=== PATIENT | male | born 1990 | race Hispanic/Latino ===

== ENCOUNTER 2018-06-09 08:36 | Emergency (ER) | payer OTHER ==
[2018-06-09 08:41] VITALS: BMI 21.2
[2018-06-09 08:44] VITALS: TEMP 98.7
--- NOTE | 2018-06-09 08:56 | ED PDOC ---
Arrival/HPI - General Chief Complaint: Palpitations Historian: Patient - History of Present Illness Narrative History of Present Illness (Text): 06/09/18 08:56 A 28 y/o M w/ no pmhx presents to the emergency department complaining of dizziness and palpitations since earlier this morning. Patient reports he was showering this morning when he suddenly felt slight shortness of breath, palpitations, and dizziness, with associated slight arm and leg weakness. Patient notes he felt like he was about to faint and has never experienced these symptoms before. Patient states he has no history of a heart murmur and has no significant family medical history of cardiac problems. Patient denies any chest pain, abdominal pain, no recent colds, no recent travels, headache, or any other complaints. No PMD Time/Duration: 4-6 hours (earlier this morning) Symptom Onset: Sudden Symptom Course: Unchanged Activities at Onset: Light Context: Home Past Medical History - Provider Review Nursing Documentation Reviewed: Yes - Psychiatric Hx Substance Use: No Family/Social History - Physician Review Nursing Documentation Reviewed: Yes Family/Social History: No Known Family HX Smoking Status: Never Smoked Hx Alcohol Use: No Hx Substance Use: No Allergies/Home Meds Allergies/Adverse Reactions: Allergies No Known Allergies Allergy (Verified 06/09/18 08:40) Home Medications: Home Meds Medication Instructions Recorded Confirmed No Known Home Med 06/09/18 06/09/18 Review of Systems - Review of Systems Respiratory: SOB Cardiovascular: Palpitations. absent: Chest Pain Gastrointestinal: absent: Abdominal Pain Neurological: Dizziness, Other (+slight arm and leg weakness). absent: Headache Physical Exam - Physical Exam Narrative Physical Exam (Text): 06/09/18 08:58 Vital Signs Reviewed: Yes Vital Signs Temp Pulse Resp BP Pulse Ox 06/09/18 08:41 98.7 F 87 19 127/70 99 Temperature: Afebrile Blood Pressure: Normal Pulse: Regular Respiratory Rate: Normal - Systems Exam Head: Present: Atraumatic, Normocephalic Pupils: Present: PERRL Extroacular Muscles: Present: EOMI Conjunctiva: Present: Normal Respiratory/Chest: Present: Clear to Auscultation, Good Air Exchange. No: Respiratory Distress, Accessory Muscle Use Cardiovascular: Present: Regular Rate and Rhythm, Normal S1, S2. No: Murmurs Abdomen: No: Tenderness, Distention, Peritoneal Signs Back: Present: Normal Inspection Upper Extremity: Present: Normal Inspection. No: Cyanosis, Edema Lower Extremity: Present: Normal Inspection. No: Edema Neurological: Present: GCS=15, CN II-XII Intact, Speech Normal Skin: Present: Warm, Dry, Normal Color. No: Rashes Psychiatric: Present: Alert, Oriented x 3, Normal Insight, Normal Concentration Medical Decision Making ED Course and Treatment: 06/09/18 08:58 Impression: 28 year old male presenting to the emergency department complaining of dizziness and palpitations. Differential Diagnosis included but are not limited to: -- ACS -- endocarditis -- pericarditis -- myocarditis -- pneumonia -- arrhythmia (WPW) -- SVT -- AVNRT Plan: -- EKG -- Labs -- CBC -- Chest X-ray -- Urinalysis -- Reassess and disposition Progress Notes: - Lab Interpretations Lab Results: 06/09/18 09:00 06/09/18 09:00 Lab Results 06/09/18 09:53: Urine Opiates Screen Negative, Urine Methadone Screen Negative, Ur Barbiturates Screen Negative, Ur Phencyclidine Scrn Negative, Ur Amphetamines Screen Negative, U Benzodiazepines Scrn Negative, U Oth Cocaine Metabols Negative, U Cannabinoids Screen Negative 06/09/18 09:46: Urine Color Yellow, Urine Appearance Clear, Urine pH 7.5, Ur Specific [place] 1.015, Urine Protein Negative, Urine Glucose (UA) Negative, Urine Ketones Negative, Urine Blood Negative, Urine Nitrate Negative, Urine Bilirubin Negative, Urine Urobilinogen 0.2, Ur Leukocyte Esterase Negative 06/09/18 09:00: D-Dimer, Quantitative < 200 06/09/18 09:00: Sodium 142, Potassium 3.6, Chloride 105, Carbon Dioxide 28, Anion Gap 13, BUN 17, Creatinine 0.8, Est GFR ( Amer) > 60, Est GFR (Non- Af Amer) > 60, Random Glucose 97, Calcium 10.2, Magnesium 2.0, Total Bilirubin 1.1, AST 22, ALT 26, Alkaline Phosphatase 83, Total Creatine Kinase 63, Troponin I < 0.01, NT-Pro-B Natriuret Pep 56.3, Total Protein 7.4, Albumin 4.5, Globulin 2.9, Albumin/Globulin Ratio 1.5 06/09/18 09:00: WBC 5.6, RBC 4.90, Hgb 14.7, Hct 42.2, MCV 86.1, MCH 30.0, MCHC 34.8, RDW 12.3, Plt Count 178, MPV 11.4 H, Gran % 46.9 L, Lymph % (Auto) 43.8 H, Wilson % (Auto) 7.0 H, Eos % (Auto) 1.8, Baso % (Auto) 0.5, Gran # 2.62, Lymph # (Auto) 2.5, Wilson # (Auto) 0.4, Eos # (Auto) 0.1, Baso # (Auto) 0.03 I have reviewed the lab results: Yes - RAD Interpretation Narrative RAD Interpretations (Text): 06/09/18 10:09 Procedure: Chest X-ray Dictator: Denzel Wang Impression: No active disease. Accounting Administrative Assistant: Radiologist - EKG Interpretation EKG Interpretation (Text): 06/09/18 09:09 EKG: Ordered, reviewed, and independently interpreted the EKG. Rate : 88 BPM Rhythm : NSR Interpretation : No ST-segment elevations, no peaked T-wave inversions. Interpreted by ED Physician: Yes - Scribe Statement The provider has reviewed the documentation as recorded by the Deborah Gimenez All medical record entries made by the Scribe were at my direction and personally dictated by me. I have reviewed the chart and agree that the record accurately reflects my personal performance of the history, physical exam, medical decision making, and the department course for this patient. I have also personally directed, reviewed, and agree with the discharge instructions and disposition. Disposition/Present on Arrival - Present on Arrival Any Indicators Present on Arrival: No History of DVT/PE: No History of Uncontrolled Diabetes: No Urinary Catheter: No History of Decub. Ulcer: No History Surgical Site Infection Following: None - Disposition Have Diagnosis and Disposition been Completed?: Yes Diagnosis: Heart palpitations Disposition: HOME/ ROUTINE Disposition Time: 10:28 Patient Plan: Discharge Patient Problems: Current Active Problems Problem Status Onset Heart palpitations Acute Condition: STABLE Discharge Instructions (ExitCare): Palpitations (DC) Print Language: IRISH Additional Instructions: All medical record entries made by the Scribe were at my direction and personally dictated by me. I have reviewed the chart and agree that the record accurately reflects my personal performance of the history, physical exam, medical decision making, and the department course for this patient. I have also personally directed, reviewed, and agree with the discharge instructions and disposition. Please follow up with the records analyst in 2-3 days Please monitor for any warning symptoms such as chest pain, shortness of breath, fever, fainting or back pain and return to Emergency Department for evaluation if you have any of these symptoms Referrals: Frank Riggins MD [Staff Provider] - Follow up with primary Kathy Bravo MD [Medical Doctor] - Follow up with [place] [facility] [place] - Follow up with primary Forms: [facility] (Kinyarwanda), WORK NOTE
[2018-06-09 09:13] VITALS: O2SAT 100
[2018-06-09 09:14] LABS: BASO # 0.03 K/mm3 (0.0-2.0); BASO % 0.5 % (0.0-3.0); EOS # 0.1 (0.0-0.7); EOS % 1.8 % (1.5-5.0); GRAN # 2.62 (1.4-6.5); GRAN % 46.9 % (50.0-68.0); HEMOGLOBIN 14.7 g/dL (14.0-18.0); LYMPH # 2.5 (1.2-3.4); LYMPH % 43.8 % (22.0-35.0); MEAN CELL VOLUME 86.1 fl (80.0-105.0); MEAN CORPUSCULAR HGB CONC 34.8 g/dl (31.0-37.0); MEAN PLATELET VOLUME 11.4 fl (7.0-11.0); MONO # 0.4 (0.1-0.6); RBC 4.9 10^6/uL (3.5-6.1); RED CELL DISTRIBUTION WIDTH 12.3 % (11.5-14.5); WHITE BLOOD COUNT 5.6 10^3/uL (4.5-11.0)
[2018-06-09 09:25] LABS: ALB/GLOB RATIO 1.5 (1.1-1.8); ALBUMIN 4.5 g/dL (3.0-4.8); ALT/SGPT 26 U/L (7-56); AST/SGOT 22 U/L (17-59); BLOOD UREA NITROGEN 17 mg/dL (7-21); CALCIUM 10.2 mg/dL (8.4-10.5); GFR NON-AFRICAN AMERICAN > 60
[2018-06-09 09:44] LABS: B-TYPE NATRIURETIC PEPTIDE 56.3 pg/mL (0-450); TROPONIN I < 0.01 ng/mL
--- NOTE | 2018-06-09 09:59 | RAD ---
Date of service: 06/09/2018 HISTORY: sob COMPARISON: No prior. FINDINGS: LUNGS: No active pulmonary disease. PLEURA: No significant pleural effusion identified, no pneumothorax apparent. CARDIOVASCULAR: No aortic atherosclerotic calcification present. Normal cardiac size. No pulmonary vascular congestion. OSSEOUS STRUCTURES: No significant abnormalities. VISUALIZED UPPER ABDOMEN: Normal. OTHER FINDINGS: None. IMPRESSION: No active disease.
[2018-06-09 10:02] LABS: PH,URINE 7.5 (4.7-8.0); URINE BILIRUBIN NEGATIVE (NEGATIVE); URINE BLOOD NEGATIVE (NEGATIVE); URINE GLUCOSE (UA) NEGATIVE (NEGATIVE); URINE LEUKOCYTE ESTERASE NEGATIVE Leu/uL (NEGATIVE); URINE PROTEIN NEGATIVE mg/dL (<30 mg/dL); URINE UROBILINOGEN 0.2 E.U./dL (<1 E.U./dL)
[2018-06-09 10:09] LABS: URINE APPEARANCE CLEAR (CLEAR); URINE COLOR YELLOW (YELLOW)
[2018-06-09 10:29] LABS: BARBITURATES, UR NEGATIVE (NEGATIVE); BENZODIAZEPINES, UR NEGATIVE (NEGATIVE); OPIATES, UR NEGATIVE (NEGATIVE); PHENCYCLIDINE, UR NEGATIVE (NEGATIVE)
[2018-06-09 10:57] VITALS: BP 125/77; PULSE 81; RESP 18
--- NOTE | 2018-06-09 20:25 | CARD ---
APPROVED REPORT Date of service: 06/09/2018 EKG Measurement Heart [id number] <Conclusion> Normal sinus rhythm Normal ECG
== END 2018-06-09 10:57 | disposition home or self-care (01) ==
LOC: ED 08:36
DX: R00.2 Palpitations (principal)

== ENCOUNTER 2018-08-06 23:29 | Emergency (ER) | payer OTHER ==
[2018-08-06 23:29] VITALS: BMI 21.2
[2018-08-06 23:57] VITALS: BP 118/76; PULSE 87; RESP 18; TEMP 98.1; O2SAT 98
== END 2018-08-07 01:09 | disposition left against medical advice (07) ==
LOC: ED 23:29
DX: Z02.89 Encounter for other administrative examinations (principal); R10.9 Unspecified abdominal pain

== ENCOUNTER 2018-08-13 19:43 | Emergency (ER) | payer OTHER ==
[2018-08-13 19:44] VITALS: BMI 21.2
--- NOTE | 2018-08-13 20:16 | ED PDOC ---
Arrival/HPI - General Chief Complaint: Weakness/Neurological Deficit Time Seen by Provider: 08/13/18 19:50 Historian: Patient - History of Present Illness Narrative History of Present Illness (Text): 08/13/18 20:13 28 yo no PMH 2-3 week h/o dizziness, yellow stool, "brain fog," which the patient describes as feeling confused, forgetting things, lack of awareness. Patient also reports having recent stomach flu with decreased appetite and diarrhea ~1 wk ago. States that his symptoms including the diarrhea has resolved, now is constipated with yellow stool and nausea. Although he reports no changes in diet, no abdominal pain, no vomiting, no alcohol use, or drug use, he is not a smoker, no h/o hepatitis, no melena/hematochezia, no recent travel. Past Medical History - Infectious Disease Hx of Infectious Diseases: None - Cardiac Hx Cardiac Disorders: No - Pulmonary Hx Respiratory Disorders: No - Neurological Hx Neurological Disorder: No - HEENT Hx HEENT Disorder: No Hx Blind: No - Musculoskeletal/Rheumatological Hx Musculoskeletal Disorders: No - Gastrointestinal Hx Gastrointestinal Disorders: No - Genitourinary/Gynecological Hx Genitourinary Disorders: No - Psychiatric Hx Psychophysiologic Disorder: No Hx Substance Use: No - Anesthesia Hx Anesthesia: No Family/Social History Family/Social History: No Known Family HX Smoking Status: Never Smoked Hx Alcohol Use: No Hx Substance Use: No Allergies/Home Meds Allergies/Adverse Reactions: Allergies No Known Allergies Allergy (Verified 08/13/18 19:54) Home Medications: Home Meds Medication Instructions Recorded Confirmed No Known Home Med 06/09/18 08/13/18 Review of Systems - Review of Systems Constitutional: absent: Fatigue, Fevers Respiratory: absent: SOB, Cough Cardiovascular: Palpitations. absent: Chest Pain Gastrointestinal: Constipation, Diarrhea, Nausea. absent: Abdominal Pain, Vomiting Musculoskeletal: absent: Arthralgias, Back Pain, Neck Pain Skin: absent: Rash, Skin Lesions Neurological: Dizziness. absent: Headache Physical Exam Temperature: Afebrile Blood Pressure: Normal Pulse: Regular Respiratory Rate: Normal Appearance: Positive for: Well-Appearing, Non-Toxic, Comfortable Pain Distress: None Mental Status: Positive for: Alert and Oriented X 3 - Systems Exam Head: Present: Atraumatic, Normocephalic Pupils: Present: PERRL Extroacular Muscles: Present: EOMI Conjunctiva: Present: Normal Mouth: Present: Moist Mucous Membranes Neck: Present: Normal Range of Motion Respiratory/Chest: Present: Clear to Auscultation, Good Air Exchange. No: Respiratory Distress, Accessory Muscle Use Cardiovascular: Present: Regular Rate and Rhythm, Normal S1, S2. No: Murmurs Abdomen: No: Tenderness, Distention, Peritoneal Signs Back: Present: Normal Inspection Upper Extremity: Present: Normal Inspection. No: Cyanosis, Edema Lower Extremity: Present: Normal Inspection. No: Edema Neurological: Present: GCS=15, CN II-XII Intact, Speech Normal, Motor Func Grossly Intact, Normal Sensory Function, Gait Normal Skin: Present: Warm, Dry, Normal Color. No: Rashes Psychiatric: Present: Alert, Oriented x 3, Normal Insight, Normal Concentration Medical Decision Making ED Course and Treatment: 08/13/18 20:17 Previous medical records reviewed, patient seen on 06/09/18 for dizziness and palpitations, had a full cardiac work up in the ER which included negative trop, neg d-dimer, normal CXR and EKG. Plan : - IV - Labs - EKG - CT head Patient states that since his last visit here, he did follow up with a leather goods ii assembler Dr. Byrne, had EKG, carotid doppler and echo done which were all normal. Patient refused CT head, benefits of obtaining head CT was discussed with the patient, asked to reconsider, however he still refused. Labs reviewed and wnl, including normal LFTs. EKG : NSR at 62 bpm, normal axis, no acute ST changes. On reevaluation, patient remains awake alert and oriented 3 in no acute distress. Repeat neuro exam shows no focal findings. Patient still is refusing head CT. Lab and EKG results d/w the patient. Based on history, exam and diagnostic results plan will be for outpatient follow up. Advised to follow up with primary care physician or referral physician (PMD, neuro and GI referral given to the patient) in 1-2 days without fail. Return to the emergency room at any time for any new or worsening symptoms. Patient states he fully agrees with and understands discharge instructions. States that he agrees with the plan and disposition. Verbalized and repeated discharge instructions and plan. I have given the patient opportunity to ask any additional questions. - PA / CHEMISTRY QUALITY CONTROL TECHNICIAN / Resident Statement MD/DO has reviewed & agrees with the documentation as recorded. Disposition/Present on Arrival - Present on Arrival Any Indicators Present on Arrival: No History of DVT/PE: No History of Uncontrolled Diabetes: No Urinary Catheter: No History of Decub. Ulcer: No History Surgical Site Infection Following: None - Disposition Have Diagnosis and Disposition been Completed?: Yes Diagnosis: Dizziness Disposition: HOME/ ROUTINE Disposition Time: 21:15 Patient Plan: Discharge Condition: STABLE Additional Instructions: Thank you for letting us take care of you today. You were treated for dizziness. The emergency medical care you received today was directed at your acute symptoms.Return to the Emergency Department if your symptoms worsen, do not improve, or if you have any other problems. Please contact your doctor in 2 days for re-evaluation and follow up / or call one of the physicians/clinics you have been referred to that are listed on the Patient Visit Information form that is included in your discharge packet. Bring any paperwork you were given at discharge with you along with any medications you are taking to your follow up visit. Our treatment cannot replace ongoing medical care by a primary care provider (PCP) outside of the emergency department. Thank you for allowing the [facility] team to be part of your care today. Referrals: FAMILY PROVIDER,NO [Primary Care Provider] - Follow up with primary Leelee Mcpherson MD [Staff Provider] - Follow up with primary Jose A Leggett MD [Staff Provider] - Follow up with primary Edd Hoang MD [Staff Provider] - Follow up with primary Forms: [employer] (Danish), WORK NOTE
[2018-08-13 20:49] LABS: BASO # 0.03 K/mm3 (0.0-2.0); BASO % 0.6 % (0.0-3.0); EOS # 0.1 (0.0-0.7); EOS % 1.3 % (1.5-5.0); HEMOGLOBIN 15.1 g/dL (14.0-18.0); LYMPH # 1.9 (1.2-3.4); LYMPH % 35.4 % (22.0-35.0); MEAN CELL VOLUME 87.2 fl (80.0-105.0); MEAN CORPUSCULAR HEMOGLOBIN 30.1 pg (25.0-35.0); MEAN CORPUSCULAR HGB CONC 34.6 g/dl (31.0-37.0); MEAN PLATELET VOLUME 11.9 fl (7.0-11.0); MONO # 0.5 (0.1-0.6); MONO % 10.1 % (1.0-6.0); RBC 5.01 10^6/uL (3.5-6.1); RED CELL DISTRIBUTION WIDTH 12.2 % (11.5-14.5); WHITE BLOOD COUNT 5.4 10^3/uL (4.5-11.0)
[2018-08-13 20:59] LABS: ALB/GLOB RATIO 1.3 (1.1-1.8); ALBUMIN 4.5 g/dL (3.0-4.8); ALT/SGPT 10 U/L (7-56); AST/SGOT 28 U/L (17-59); BLOOD UREA NITROGEN 11 mg/dL (7-21); CALCIUM 9.7 mg/dL (8.4-10.5); GFR NON-AFRICAN AMERICAN > 60
[2018-08-13 23:52] VITALS: BP 136/78; PULSE 90; RESP 17; O2SAT 100
--- NOTE | 2018-08-14 10:25 | CARD ---
APPROVED REPORT Date of service: 08/13/2018 EKG Measurement Heart [id number] <Conclusion> Normal sinus rhythm with sinus arrhythmia Normal ECG
== END 2018-08-13 21:47 | disposition home or self-care (01) ==
LOC: ED 19:43
DX: R42 Dizziness and giddiness (principal)

== ENCOUNTER 2018-08-26 01:26 | Emergency (ER) | payer OTHER ==
[2018-08-26 01:27] VITALS: BMI 21.2
[2018-08-26 01:51] VITALS: BP 114/77; PULSE 71; RESP 18; TEMP 98.3; O2SAT 98
[2018-08-26] MEDS ORDERED: Sodium Chloride 0.9% 1,000 ML IV STA (02:16)
--- NOTE | 2018-08-26 02:44 | ED PDOC ---
Arrival/HPI - General Chief Complaint: Abdominal Pain Time Seen by Provider: 08/26/18 02:08 Historian: Patient - History of Present Illness Narrative History of Present Illness (Text): 08/26/18 02:33 28 year old male with no significant past medical history, presents to the emergency department complaining of episodes of diarrhea associated with some abdominal cramping. Patient also reports occasional dizziness. Patient has been having similar symptoms a couple weeks ago which he was evaluated and discharged. Patient at the time refused CT scan of the head. Patient denies any abdominal pain currently. Patient denies any fever, chills, chest pain, shortness of breath, nausea, vomiting, urinary symptoms, back pain, neck pain, headache, or any other complaints. Symptom Onset: Gradual Symptom Course: Unchanged Activities at Onset: Light Context: Home Past Medical History - Provider Review Nursing Documentation Reviewed: Yes - Infectious Disease Hx of Infectious Diseases: None - Cardiac Hx Cardiac Disorders: No - Pulmonary Hx Respiratory Disorders: No - Neurological Hx Neurological Disorder: No - HEENT Hx HEENT Disorder: No Hx Blind: No - Musculoskeletal/Rheumatological Hx Musculoskeletal Disorders: No - Gastrointestinal Hx Gastrointestinal Disorders: No - Genitourinary/Gynecological Hx Genitourinary Disorders: No - Psychiatric Hx Psychophysiologic Disorder: No Hx Substance Use: No - Anesthesia Hx Anesthesia: No Family/Social History - Physician Review Nursing Documentation Reviewed: Yes Family/Social History: No Known Family HX Smoking Status: Never Smoked Hx Alcohol Use: No Hx Substance Use: No Allergies/Home Meds Allergies/Adverse Reactions: Allergies No Known Allergies Allergy (Verified 08/13/18 19:54) Home Medications: Home Meds Medication Instructions Recorded Confirmed No Known Home Med 06/09/18 08/13/18 Review of Systems - Physician Review All systems were reviewed & negative as marked: Yes - Review of Systems Constitutional: absent: Fevers, Other (chills) Respiratory: absent: SOB Cardiovascular: absent: Chest Pain Gastrointestinal: Abdominal Pain, Diarrhea. absent: Nausea, Vomiting Genitourinary Male: absent: Dysuria, Frequency, Hematuria Musculoskeletal: absent: Back Pain, Neck Pain Neurological: Dizziness. absent: Headache Physical Exam Vital Signs Reviewed: Yes Vital Signs Temp Pulse Resp BP Pulse Ox 08/26/18 01:50 98.3 F 71 18 114/77 98 Temperature: Afebrile Blood Pressure: Normal Pulse: Regular Respiratory Rate: Normal Appearance: Positive for: Well-Appearing, Non-Toxic, Comfortable Pain Distress: None Mental Status: Positive for: Alert and Oriented X 3 - Systems Exam Head: Present: Atraumatic, Normocephalic Pupils: Present: PERRL Extroacular Muscles: Present: EOMI Conjunctiva: Present: Normal Mouth: Present: Moist Mucous Membranes Neck: Present: Normal Range of Motion Respiratory/Chest: Present: Clear to Auscultation, Good Air Exchange. No: Respiratory Distress, Accessory Muscle Use Cardiovascular: Present: Regular Rate and Rhythm, Normal S1, S2. No: Murmurs Abdomen: No: Tenderness, Distention, Peritoneal Signs Back: Present: Normal Inspection Upper Extremity: Present: Normal Inspection. No: Cyanosis, Edema Lower Extremity: Present: Normal Inspection. No: Edema Neurological: Present: GCS=15, Speech Normal Skin: Present: Warm, Dry, Normal Color. No: Rashes Psychiatric: Present: Alert, Oriented x 3, Normal Insight, Normal Concentration Medical Decision Making ED Course and Treatment: 08/26/18 02:41 Impression: 28 year old male presents complaining of episodes of diarrhea associated with abdominal cramping and occasional dizziness. Plan: -- head CT w/o contrast -- Labs -- IV Fluids -- Reassess and disposition Prior Visits: Notes and results from previous visits were reviewed. Progress Notes: 08/26/18 04:[address] head scan and understands risk of intractable dizziness. Patient wants to sign out against medical advice and will follow up with his PMD. Leaving Against Medical Advice (AMA): The patient is choosing to leave against medical advice. I have personally explained to the patient that choosing to do so may result in permanent bodily harm, disability, or . I have discussed at great length that without further evaluation and monitoring there may be unforeseen circumstances and/or deterioration causing permanent bodily harm or as a result of their choice. The patient is alert, oriented, and shows the mental capacity to make clear decisions regarding the patients health care at this time. The patient continues to wish to leave against medical advice. In light of the patients decision to leave against medical advice, follow-up has been arranged and the patient is aware of the importance to following up as instructed. The patient has been advised that they should return to the emergency room immediately if they change their mind at any time, or if their condition begins to change or worsen in any way. - Lab Interpretations I have reviewed the lab results: Yes - RAD Interpretation Radiology Orders: 08/26/18 02:21 HEAD W/O CONTRAST [CT] Stat Curriculum Specialist: Radiologist - Medication Orders Current Medication Orders: Sodium Chloride (Sodium Chloride 0.9%) 1,000 mls @ 999 mls/hr IV .Q1H1M STA Stop: 08/26/18 03:16 Last Admin: 08/26/18 02:35 Dose: 999 mls/hr eMAR Start Stop Document 08/26/18 02:35 EB (Rec: 08/26/18 02:36 EB [id number]) Intravenous Solution Start Date 08/26/18 Start Time 02:36 - Scribe Statement The provider has reviewed the documentation as recorded by the Deborah Ceron Provider Scribe Attestation: All medical record entries made by the Scribe were at my direction and personally dictated by me. I have reviewed the chart and agree that the record accurately reflects my personal performance of the history, physical exam, m edical decision making, and the department course for this patient. I have also personally directed, reviewed, and agree with the discharge instructions and disposition. Disposition/Present on Arrival - Present on Arrival Any Indicators Present on Arrival: No History of DVT/PE: No History of Uncontrolled Diabetes: No Urinary Catheter: No History of Decub. Ulcer: No History Surgical Site Infection Following: None - Disposition Have Diagnosis and Disposition been Completed?: Yes Diagnosis: Gastroenteritis, Dizziness Disposition: AGAINST MEDICAL ADVICE Disposition Time: 04:57 Patient Plan: Discharge Patient Problems: Current Active Problems Problem Status Onset Dizziness Acute Gastroenteritis Acute Condition: GOOD Forms: [employer] (Honduran)
[2018-08-26 02:52] LABS: ALB/GLOB RATIO 1.3 (1.1-1.8); ALBUMIN 4.4 g/dL (3.0-4.8); ALT/SGPT 10 U/L (7-56); AST/SGOT 23 U/L (17-59); BLOOD UREA NITROGEN 15 mg/dL (7-21); CALCIUM 9.8 mg/dL (8.4-10.5); GFR NON-AFRICAN AMERICAN > 60; LIPASE 148 U/L (23-300)
[2018-08-26 02:53] LABS: HEMOGLOBIN 14.5 g/dL (14.0-18.0); MEAN CELL VOLUME 89.6 fl (80.0-105.0); MEAN CORPUSCULAR HEMOGLOBIN 30.1 pg (25.0-35.0); MEAN CORPUSCULAR HGB CONC 33.6 g/dl (31.0-37.0); MEAN PLATELET VOLUME 12.4 fl (7.0-11.0); RBC 4.82 10^6/uL (3.5-6.1); RED CELL DISTRIBUTION WIDTH 12.4 % (11.5-14.5)
== END 2018-08-26 03:35 | disposition left against medical advice (07) ==
LOC: ED 01:26
DX: K52.9 Noninfective gastroenteritis and colitis, unspecified (principal); R42 Dizziness and giddiness
CPT/HCPCS: 80053; 83690; 85027; 99282; J7030

== ENCOUNTER 2018-08-26 16:19 | Emergency (ER) | payer OTHER ==
[2018-08-26 16:20] VITALS: BMI 21.2
[2018-08-26 16:31] VITALS: RESP 18; TEMP 98.1
--- NOTE | 2018-08-26 16:41 | ED PDOC ---
Arrival/HPI - General Historian: Patient - History of Present Illness Narrative History of Present Illness (Text): 08/26/18 18:54 28 y/o male with no significant PMH presents to the Emergency department c/o intermittent dizziness, described as lightheadedness x 1 month. Pt was seen in ED early this morning for similar complaints with a negative workup, including bloodwork. A head CT was ordered, but patient left AMA before it could be completed. Pt presents today requesting head CT. He has been having intermittent episodes of diarrhea over the last few weeks with associated lightheadedness. Pt was on the way to a GI appointment this afternoon when he suddenly became anxio us and decided to come to ED for imaging instead. Denies fever, chills, cough, sinus congestion, urinary symptoms, abdominal pain, nausea, vomiting, chest pain, SOB, headache, vision changes, tinnitus, or any other associated symptoms. Past Medical History - Provider Review Nursing Documentation Reviewed: Yes - Infectious Disease Hx of Infectious Diseases: None - Cardiac Hx Cardiac Disorders: No - Pulmonary Hx Respiratory Disorders: No - Neurological Hx Neurological Disorder: No - HEENT Hx HEENT Disorder: No Hx Blind: No - Musculoskeletal/Rheumatological Hx Musculoskeletal Disorders: No - Gastrointestinal Hx Gastrointestinal Disorders: No - Genitourinary/Gynecological Hx Genitourinary Disorders: No - Psychiatric Hx Psychophysiologic Disorder: No Hx Substance Use: No - Anesthesia Hx Anesthesia: No Family/Social History - Physician Review Nursing Documentation Reviewed: Yes Family/Social History: No Known Family HX Smoking Status: Never Smoked Hx Alcohol Use: No Hx Substance Use: No Allergies/Home Meds Allergies/Adverse Reactions: Allergies No Known Allergies Allergy (Verified 08/26/18 16:31) Home Medications: Home Meds Medication Instructions Recorded Confirmed No Known Home Med 06/09/18 08/26/18 Review of Systems - Physician Review All systems were reviewed & negative as marked: Yes - Review of Systems Constitutional: Normal. absent: Fatigue, Fevers Eyes: Normal. absent: Vision Changes ENT: Normal. absent: Sore Throat, Sinus Congestion Respiratory: Normal. absent: SOB, Cough Cardiovascular: Normal. absent: Chest Pain, Palpitations Gastrointestinal: Normal. absent: Abdominal Pain, Stool Changes, Nausea, Vomiting, Appetite Changes Genitourinary Male: Normal. absent: Dysuria, Frequency Musculoskeletal: Normal. absent: Arthralgias, Back Pain, Neck Pain Skin: Normal Neurological: Dizziness. absent: Headache, Focal Weakness, Gait Changes, Facial Droop, Disequilibrium Endocrine: Normal Hemo/Lymphatic: Normal Psychiatric: Normal Physical Exam Vital Signs Reviewed: Yes Vital Signs Temp Pulse Resp BP Pulse Ox 08/26/18 16:29 98.1 F 103 H 18 118/80 98 Temperature: Afebrile Blood Pressure: Normal Pulse: Tachycardic Respiratory Rate: Normal Appearance: Positive for: Well-Appearing, Non-Toxic, Comfortable Pain Distress: None Mental Status: Positive for: Alert and Oriented X 3 - Systems Exam Head: Present: Atraumatic, Normocephalic Pupils: Present: PERRL Extroacular Muscles: Present: EOMI Conjunctiva: Present: Normal Ears: Present: Normal, NORMAL TM, Normal Canal Mouth: Present: Moist Mucous Membranes Pharnyx: Present: Normal. No: ERYTHEMA, EXUDATE Neck: Present: Normal Range of Motion. No: Meningeal Signs Respiratory/Chest: Present: Clear to Auscultation, Good Air Exchange. No: Respiratory Distress, Accessory Muscle Use Cardiovascular: Present: Regular Rate and Rhythm, Normal S1, S2 Abdomen: Present: Normal Bowel Sounds. No: Tenderness, Distention, Peritoneal Signs Back: Present: Normal Inspection Upper Extremity: Present: Normal Inspection, Normal ROM, NORMAL PULSES, Neurovascularly Intact, Capillary Refill < 2s. No: Cyanosis, Edema, Temperature Abnormalties Lower Extremity: Present: Normal Inspection, NORMAL PULSES, Normal ROM, Neurovascularly Intact, Capillary Refill < 2 s. No: Edema, Temperature Abnormalties Neurological: Present: GCS=15, CN II-XII Intact, Speech Normal, Motor Func Grossly Intact, Normal Sensory Function, Gait Normal Skin: Present: Warm, Dry, Normal Color. No: Rashes Psychiatric: Present: Alert, Oriented x 3, Anxious Medical Decision Making ED Course and Treatment: 08/26/18 16:40 Initial Plan: * Head CT without contrast * Fingerstick * UA * Orthostatic Vital Signs * PO Hydration * EKG Patient refusing EKG at this time. Advised that dizziness can be caused by cardiac disorders. Pt continues to refuse. Bloodwork not indicated at this time, as bloodwork was drawn at patient's visit early this morning. Labs reviewed, unremarkable. UA unremarkable Fingerstick wnl Orthostatics negative Head CT negative for acute pathology. Pt given copy of report. Diagnostic testing results and plan of care discussed with patient. Strict instructions given regarding prescription use, importance of followup, and signs/symptoms to return to ER including syncope, chest pain, SOB, or any other new/worsening symptoms. Pt verbalized understanding of discussion. Patient is A&Ox3, ambulating with steady gait, with vital signs stable for discharge. - Lab Interpretations Lab Results: Lab Results 08/26/18 17:00: Urine Color Yellow, Urine Appearance Clear, Urine pH 6.0, Ur Specific [place] 1.025, Urine Protein Negative, Urine Glucose (UA) Negative, Urine Ketones Negative, Urine Blood Negative, Urine Nitrate Negative, Urine Bilirubin Negative, Urine Urobilinogen 0.2, Ur Leukocyte Esterase Negative 08/26/18 16:55: POC Glucose (mg/dL) 87 - RAD Interpretation Radiology Orders: 08/26/18 16:40 HEAD W/O CONTRAST [CT] Stat Disposition/Present on Arrival - Present on Arrival Any Indicators Present on Arrival: No History of DVT/PE: No History of Uncontrolled Diabetes: No Urinary Catheter: No History of Decub. Ulcer: No History Surgical Site Infection Following: None - Disposition Have Diagnosis and Disposition been Completed?: Yes Diagnosis: Anxiety, Dizziness Disposition: HOME/ ROUTINE Disposition Time: 19:00 Condition: GOOD Discharge Instructions (ExitCare): Anxiety, Adult (DC) Additional Instructions: Increase fluids Rest, no strenuous activity Followup with GI as scheduled Followup with neurology within 2 days Followup with ENT within 2 days Return to ER with any new/worsening symptoms Referrals: Chris Morataya DO [Staff Provider] - Follow up with primary Edd Hoang MD [Staff Provider] - Follow up with primary Forms: [employer] ([place]), WORK NOTE
[2018-08-26 17:56] LABS: URINE BILIRUBIN NEGATIVE (NEGATIVE); URINE BLOOD NEGATIVE (NEGATIVE); URINE GLUCOSE (UA) NEGATIVE (NEGATIVE); URINE LEUKOCYTE ESTERASE NEGATIVE Leu/uL (NEGATIVE); URINE PROTEIN NEGATIVE mg/dL (<30 mg/dL); URINE UROBILINOGEN 0.2 E.U./dL (<1 E.U./dL)
[2018-08-26 18:15] LABS: URINE APPEARANCE CLEAR (CLEAR); URINE COLOR YELLOW (YELLOW)
--- NOTE | 2018-08-26 18:35 | CT ---
Date of service: 08/26/2018 PROCEDURE: CT HEAD WITHOUT CONTRAST. HISTORY: Headache COMPARISON: None available. TECHNIQUE: Axial computed tomography images were obtained through the head/brain without intravenous contrast. Supplemental Coronal and Sagittal projections created and reviewed. Radiation dose: Total exam DLP = 910.23 mGy-cm. This CT exam was performed using one or more of the following dose reduction techniques: Automated exposure control, adjustment of the mA and/or kV according to patient size, and/or use of iterative reconstruction technique. FINDINGS: HEMORRHAGE: No intracranial hemorrhage. BRAIN: No mass effect or edema. No atrophy or chronic microvascular ischemic changes. VENTRICLES: Unremarkable. No hydrocephalus. CALVARIUM: Unremarkable. PARANASAL SINUSES: Unremarkable as visualized. No significant inflammatory changes. MASTOID AIR CELLS: Unremarkable as visualized. No inflammatory changes. OTHER FINDINGS: None. IMPRESSION: No acute intracranial abnormalities. No significant findings to account for the clinical presentation.
[2018-08-26 19:00] VITALS: BP 123/69; PULSE 65; O2SAT 100
== END 2018-08-26 19:45 | disposition home or self-care (01) ==
LOC: ED 16:19
DX: F41.9 Anxiety disorder, unspecified (principal); R42 Dizziness and giddiness